=== PATIENT | male | born 1950 | race Caucasian/White ===

== ENCOUNTER 2019-06-11 12:50 | Day surgery (SDC) | payer MEDICARE ==
[~2019-06-11] VITALS: Ht 188 cm; Wt 126.1 kg
[~2019-06-11 12:50] MED LIST: ALLOPURINOL300 MG PO; CENTRUM SILVER1 EAC2 PO; CHLORTHALIDONE25 MG PO; KLOR-CON 1010 MEQ PO; LOSARTAN POTASS25 MG PO; LOVASTATIN10 MG PO; NITROSTAT0.4 MG SL; TERAZOSIN HCL2 MG PO; VITAMIN D400 UNI1 PO
[2019-06-11] MEDS ORDERED: FENOFIBRATE48 MG PO (13:30)
[2019-06-11] MEDS ORDERED: ASPIR-LOW81 MG PO (13:31)
[2019-06-11] MEDS ORDERED: METFORMIN HCL500 MG PO (13:32)
[2019-06-11] MEDS ORDERED: METOPROLOL SUCC50 MG PO (13:33)
[2019-06-11] MEDS ORDERED: TESTOSTERO200 MG/1 M IM (13:34)
--- NOTE | 2019-06-11 16:21 | NUR ---
06/11/19 1621 Liz Krueger 1522 PT ARRIVED IN PACU WIDE AWAKE WITH NO C/O'S. 1530 SITTING UP IN BED SIPPING ON WATER. 1545 PT GETTING DRESSED WITH STAND BY ASSIST. DC INSTRUCTIONS GIVEN TO PT/SPOUSE. LEFT VIA W/C.
--- NOTE | 2019-06-13 10:16 | OR ---
[facility] [address] [place], [place] [address] Signed DATE OF OPERATION: 06/11/2019 SURGEON: Maria Eugenia Lieberman MD PREOPERATIVE DIAGNOSES: 1. Colon screening. 2. History of coronary stenting in January 2018. POSTOPERATIVE DIAGNOSIS: Small polyp of sigmoid (excised) and hypertrophied anal papilla x1. PROCEDURE: Total colonoscopy to cecum with cold morcellation polypectomy x1. ANESTHESIA: Intravenous sedation, fentanyl 100 mcg, Versed 6 mg. INDICATION: This 68-year-old white man is a patient of Dr. Ball and has history of coronary stenting in January of 2018. He was referred for colonoscopy previously both on Plavix and aspirin, and on that basis, a screening colonoscopy deferred until this point. He has been off his Plavix for a few days. He continues on aspirin. He is admitted at this time to undergo screening colonoscopy. He understands the risks of bleeding, infection, and perforation, and wished to proceed. FINDINGS: The prep was good. Complete colonoscopy was undertaken to the cecum without question. He had one small flat polyp in the sigmoid, which was excised with cold morcellation technique. Retroflexed view did confirm a hypertrophied anal papilla, which was rather small. There were no other findings of concern. PROCEDURE NOTE: The patient was brought to the endoscopy suite and placed in lateral decubitus position, given intravenous sedation to the point of slurred speech and nystagmus. Digital rectal examination was normal. An Olympus video colonoscope was passed in the rectum and manipulated throughout the colon ultimately intubating the cecum itself. The ileocecal valve and appendiceal orifice were normal. Scope was withdrawn from that point and careful examination upon withdrawal showed no sign of abnormality until the sigmoid at about 30 cm where a small Electronically Signed By: MARIA EUGENIA LIEBERMAN MD 06/13/19 [facility] PATIENT NAME: GEETHA REECE OPERATIVE REPORT DATE OF : 54 REPORT #: [id number] PHYSICIAN: MARIA EUGENIA LIEBERMAN MD PCP: BRO BALL MD REPORT IS CONFIDENTIAL AND NOT TO BE RELEASED WITHOUT AUTHORIZATION [facility] [address] [place], [place] [address] Signed flat-appearing polyp was noted. This was excised with cold morcellation technique. Narrow band imaging confirmed complete extirpation of the lesion. The scope was further withdrawn. Retroflexed view undertaken and showed a small hypertrophied anal papilla. The scope was straightened, withdrawn further and removed. The patient taken to recovery room in good condition. CONCLUDING DIAGNOSES: 1. Small polyp of the sigmoid, completely excised. 2. Hypertrophied anal papilla. PLAN: Recommend repeat colonoscopy in 5 years sooner if clinically indicated. He will return to the ongoing care of Dr. Ball otherwise. MD SANDRA Lozano/ROLANDO /[id number] cc: Dr. Ball Copies: ~ Electronically Signed By: MARIA EUGENIA LIEBERMAN MD 06/13/19 1016 PATIENT NAME: GEETHA REECE OPERATIVE REPORT DATE OF : 54 REPORT #: [id number] PHYSICIAN: MARIA EUGENIA LIEBERMAN MD PCP: BRO BALL MD REPORT IS CONFIDENTIAL AND NOT TO BE RELEASED WITHOUT AUTHORIZATION
--- NOTE | 2019-06-13 12:53 | PATH ---
[facility] [address] [address] Signed SPECIMEN(S): A SIGMOID POLYP SPECIMEN SOURCE: A. SIGMOID POLYP CLINICAL HISTORY: Screening. Post: Small polyp at sigmoid. MICROSCOPIC DESCRIPTION: Histologic sections of all submitted blocks are examined by light microscopy. These findings, together with the gross examination, support the pathologic diagnosis. FINAL PATHOLOGIC DIAGNOSIS: Mucosa, sigmoid colon, biopsy: - Tubular adenoma. LJA:cml:C2NR GROSS DESCRIPTION: The specimen, labeled "MP, sigmoid polyp," is received in formalin and consists of three pink-phillip soft tissue fragments that measure 0.1-0.2 cm in greatest dimension. The specimen is entirely submitted in cassette (A1). JS (under the direct supervision of a pathologist) The Gross Description was prepared using a voice recognition system. The report was reviewed for accuracy; however, sound-alike word errors, addition and/or deletions may occur. If there is any question about this report, please contact Client Services. PERFORMING LABORATORY: The technical component was performed by [facility] [employer], [address] [place] [id number] (Art Handler: Lanette Sterling MD; CLIA# [id number]). Professional interpretation was performed by [facility], [address] [address] (Art Handler: Juan Flanagan MD; CLIA# [id number]). Diagnostician: Juan Flanagan MD Pathologist Electronically Signed 06/13/2019 PATIENT NAME: GEETHA REECE PATHOLOGY DATE OF : 54 REPORT #: [id number] PHYSICIAN: [facility] PCP: BRO SALAZAR MD REPORT IS CONFIDENTIAL AND NOT TO BE RELEASED WITHOUT AUTHORIZATION [address] [address] Signed Copies: ~ PATIENT NAME: GEETHA REECE PATHOLOGY DATE OF : 54 REPORT #: [id number] PHYSICIAN: [facility] PCP: BRO SALAZAR MD REPORT IS CONFIDENTIAL AND NOT TO BE RELEASED WITHOUT AUTHORIZATION
== END 2019-06-11 15:45 | disposition home or self-care (01) ==
LOC: OPS 12:50 → DS 12:50 → OPS 14:00 → DS 14:00 → OPS 15:45
PROVIDERS: Surgery
PROC: 0DBN8ZZ Excision of Sigmoid Colon, Via Natural or Artificial Opening Endoscopic (ICD-10-PCS; principal; 2019-06-11 14:00)
DX: Z12.11 Encounter for screening for malignant neoplasm of colon (principal); D12.5 Benign neoplasm of sigmoid colon; K62.89 Other specified diseases of anus and rectum; E66.01 Morbid (severe) obesity due to excess calories; I25.10 Atherosclerotic heart disease of native coronary artery without angina pectoris; E29.1 Testicular hypofunction; I10 Essential (primary) hypertension; Z95.5 Presence of coronary angioplasty implant and graft; Z79.899 Other long term (current) drug therapy; Z68.36 Body mass index [BMI] 36.0-36.9, adult; Z79.02 Long term (current) use of antithrombotics/antiplatelets; Z87.891 Personal history of nicotine dependence
CPT/HCPCS: 99153; G0500; J0690; J2250; J3010; J7121

== ENCOUNTER 2020-01-14 09:45 | Day surgery (SDC) | payer MEDICARE ==
[~2020-01-14] VITALS: Ht 188 cm; Wt 120.2 kg
--- NOTE | ~2020-01-14 | OR ---
[facility] [address] [place], [place] [address] Draft DATE OF OPERATION: 01/14/2020 SURGEON: Maria Eugenia Lieberman MD PREOPERATIVE DIAGNOSES: Left posterior nckmsee-[id number]-jaz, history of prior perirectal abscess. POSTOPERATIVE DIAGNOSES: Left posterior kvypgle-gc-gug, history of prior perirectal abscess (superficial). PROCEDURE: 1. Exam under anesthesia. 2. Anal fistulotomy with passage of probe, division of tissue and curettage. ANESTHESIA: Saddle block; Shane Vaca CRNA and local 6 mL of 0.25% Marcaine with epinephrine. INDICATION: This 69-year-old white man is a patient of Dr. Bro Ball and suffered a significant left posterior perirectal abscess on november 08, 2019 requiring incision and drainage, placement of a seton. He recovered well, but then developed a jfvrnsl-ss-nwm corresponding to the area of drainage. It is unclear just how deep the vlywdft-rf-ahy is. I have recommended exam under anesthesia and anal fistulotomy as appropriate. He may require a staging seton depending on how much muscle is incorporated in the fistulous tract. The risks of bleeding, infection, variable degrees of incontinence, recurrence and so forth were all reviewed with him. He understands and wished to proceed. FINDINGS: The fistulous tract was reasonably superficial. Division of the tissue was undertaken over a lacrimal duct probe. Internal sphincter muscle was divided, but no external sphincter muscle required division. Photographs were taken. The fistulous tract was approximately 4 cm in length. DESCRIPTION OF PROCEDURE: The patient was brought to the Day Surgery area and given a saddle block anesthetic and then taken to the operating room. He was placed in prone jackknife position with buttocks taped apart. The perianal area was clipped and prepared with a Betadine-based solution and draped sterilely. The fistulous opening was noted several cm from the anal verge on the left posterior aspect. It is quite well formed. The lacrimal duct probe PATIENT NAME: GEETHA REECE OPERATIVE REPORT DATE OF : 54 REPORT #: [id number] PHYSICIAN: MARIA EUGENIA LIEBERMAN MD PCP: BRO BALL MD REPORT IS CONFIDENTIAL AND NOT TO BE RELEASED WITHOUT AUTHORIZATION [facility] [address] [place], [place] [address] Draft was passed down the fistulous tract without problem and egress of purulent material was noted at the dentate line. The probe was passed to this area clearly indicating the fistulous tract. It was reasonably superficial. The fistulous tract was divided with electrocautery using the lacrimal duct probe as a guide. Only internal sphincter muscle was divided. No external sphincter required division. The fistulous tract had granulation tissue. This was cauterized and curettaged. Photographs were taken. Irrigation was undertaken and 6 mL of 0.25% Marcaine with epinephrine injected locally. A peripad was applied. Hemostasis was good. He was returned to the supine position and taken to the recovery room in good condition. BLOOD LOSS: Minimal. MD SANDRA Lozano/ROLANDO /[id number] cc: Bro Ball MD Copies: BRO BALL MD ~ PATIENT NAME: GEETHA REECE ALDAIR OPERATIVE REPORT DATE OF : 54 REPORT #: [id number] PHYSICIAN: MARIA EUGENIA LIEBERMAN MD PCP: BRO BALL MD REPORT IS CONFIDENTIAL AND NOT TO BE RELEASED WITHOUT AUTHORIZATION
[~2020-01-14 09:45] MED LIST changes: +ASPIR-LOW81 MG PO; +FENOFIBRATE48 MG PO; +GLUCOPHAGE XR500 MG PO; +LIPITOR20 MG PO; -LOVASTATIN10 MG PO; +METOPROLOL TART50 MG PO; +MOTRIN IB200 MG PO; +OXYCODON-ACETA1 EAC2 PO; +TESTOSTERO200 MG/1 M IM; +TYLENOL EXTRA500 MG PO; +VITAMIN D325 MC2 PO; -VITAMIN D400 UNI1 PO
[2020-01-14] MEDS ORDERED: OXYCODON-ACETA1 EAC2 PO (11:58)
[2020-01-14] MEDS ORDERED: IBUPROFEN600 MG PO (11:58)
--- NOTE | 2020-01-14 12:40 | NUR ---
01/14/20 1240 Liz Krueger 1141 PT ARRIVED IN PACU WIDE AWAKE WITH NO C/O'S. BLOOD SUGAR 116 ON ARRIVAL. 1200 SIPPING ON WATER. AT BEDSIDE. 1215 DC INSTRUCTIONS GIVEN. ALL QUESTIONS ANSWERED. 1225 TO DS TO WAIT FOR RIDE. ARRIVED IN ROOM ON ARRIVAL. TALKING WITH PT/SPOUSE. 1230 LEFT VIA W/C WITH RN.
== END 2020-01-14 12:25 | disposition home or self-care (01) ==
LOC: DS 09:45
PROVIDERS: Surgery
PROC: 0H89XZZ Division of Perineum Skin, External Approach (ICD-10-PCS; principal; 2020-01-14 11:15)
DX: K60.5 Anorectal fistula (principal); I10 Essential (primary) hypertension; I25.10 Atherosclerotic heart disease of native coronary artery without angina pectoris; E78.5 Hyperlipidemia, unspecified; Z79.899 Other long term (current) drug therapy; Z79.84 Long term (current) use of oral hypoglycemic drugs; Z87.891 Personal history of nicotine dependence
CPT/HCPCS: 00902; J0690; J1644; J2001; J2250; J2405; J2704; J7121